=== PATIENT | male | born 1965 | race Caucasian/White ===

== ENCOUNTER 2018-08-04 05:44 | Day surgery (SDC) | payer OTHER ==
[~2018-08-04] VITALS: Ht 175.3 cm; Wt 63.1 kg
[~2018-08-04 05:44] MED LIST: ALEV220T26 PO; LISI10TA4 PO; MELA5TAB20 PO; OMEP40CA2 PO
[2018-08-04] MEDS ORDERED: dexameTHASONE 10 MG/1 ML VIAL PRES.FREE (J1100) ONE (05:45)
[2018-08-04] MEDS ORDERED: ROPIvacaine 0.5% 30 ML INJECTION (J2795 PER 1MG) ONE (05:45)
[2018-08-04] MEDS ORDERED: EPINEPHrine INJ 1 MG/ML 1ML AMP ONE (05:45)
[2018-08-04] MEDS ORDERED: fentaNYL 100 MCG/2 ML INJECTION (J3010) As Ordered ONE ×2 (06:47→07:12)
[2018-08-04] MEDS ORDERED: MIDAZOLAM INJ 2 MG/2 ML VIAL (J2250) As Ordered ONE ×2 (06:47→07:13)
[2018-08-04] MEDS ORDERED: LR 1,000 ML IV SCH ×3 (07:00→12:00)
[2018-08-04] MEDS ORDERED: EPINEPHrine INJ 1 MG/ML 1ML AMP As Ordered ONE (07:12)
[2018-08-04] MEDS ORDERED: LIDOCAINE 2% INJ 100 MG/5 ML SDV (FOR ANES.) As Ordered ONE (07:13)
[2018-08-04] MEDS ORDERED: dexameTHASONE 4 MG/ML 1ML VIAL (J1100) As Ordered ONE (07:13)
[2018-08-04] MEDS ORDERED: ONDANSETRON 4MG/2ML VIAL (J2405) As Ordered ONE (07:13)
[2018-08-04] MEDS ORDERED: PROPOFOL 200 MG/20 ML VIAL As Ordered ONE (07:13)
[2018-08-04] MEDS ORDERED: ROCURONIUM BROMIDE 50 MG/5 ML VIAL As Ordered ONE (07:13)
[2018-08-04] MEDS: fentaNYL 100 MCG/2 ML INJECTION (J3010) IV SCH ×2 (07:14→07:16)
[2018-08-04] MEDS ORDERED: MIDAZOLAM INJ 2 MG/2 ML VIAL (J2250) IV ONE (08:00)
[2018-08-04] MEDS ORDERED: SUGAMMADEX SODIUM 500 MG/5 ML VIAL (BRIDION) As Ordered ONE (08:30)
[2018-08-04] MEDS ORDERED: PERCOCET 5MG/325MG TAB PO PRN (11:30)
[2018-08-04] MEDS ORDERED: ONDANSETRON 4MG/2ML VIAL (J2405) IV PRN (11:30)
[2018-08-04] MEDS ORDERED: fentaNYL 100 MCG/2 ML INJECTION (J3010) IV PRN (11:30)
[2018-08-04 11:41] VITALS: BP 145/90
--- NOTE | 2018-08-04 14:16 | RO ---
DATE OF SURGERY: 08/04/2018 PREOPERATIVE DIAGNOSES: 1. Left shoulder full-thickness rotator cuff tear. 2. Left shoulder impingement. 3. Left shoulder labral tear with biceps tendon rupture. POSTOPERATIVE DIAGNOSES: 1. Left shoulder full-thickness rotator cuff tear. 2. Left shoulder labral tear. 3. Left shoulder arthritis. 4. Left shoulder impingement. PROCEDURE: 1. Left shoulder arthroscopic rotator cuff repair including subscapularis. 2. Left shoulder extensive debridement including chondroplasty, labral debridement, synovectomy and subacromial decompression. SURGEON: Dr. Levar Lynch EXERCISE SPECIALIST: SOHAIL Reid ANESTHESIA: Preoperative nerve block, plus general. INTRAVENOUS (IV) FLUIDS: Lactated Ringer's. ESTIMATED BLOOD LOSS: Less than 5 mL. IMPLANTS: Arthrex 4.75 mm SwiveLock anchor times four and Arthrex 5.5 mm SwiveLock anchor times one. CLOSURE: Nylon. PROCEDURE: Patient was identified in the preoperative holding area. The left shoulder was marked by myself. He had interscalene nerve block by anesthesia. He was brought to the operating room, placed supine on a well-padded operating room (OR) table with a beanbag. Generalized anesthesia was induced. He received appropriate IV antibiotics within 1 hour of incision. Exam under anesthesia revealed 180 degrees of forward flexion, 90 of external rotation with arm at his side and no increased anterior-posterior translation. He was then placed in the right side down lateral decubitus position with an axillary roll and all bony prominences well padded. He had bilateral Venodyne boots for deep venous thrombosis (DVT) prophylaxis. The left arm was placed into the Arthrex STaR sleeve lateral decubitus traction salazar with 10 pounds of traction. The left shoulder was then prepped and draped in a normal sterile fashion with Chloraprep. Prior to incision, a time-out performed per hospital protocol. SOHAIL Reid was present for the entire procedure and participated in all essential portions of the procedure. This included patient positioning and draping, holding the arthroscope, manipulating the arm, using the mallet and awl to assist with anchor placement, directly placing anchors, grasping suture and cutting suture and the wound closure. After a time-out, the left shoulder was insufflated with lactated Ringer's and a posterior viewing portal made with an #11 blade. A 30 degree arthroscope introduced into the joint atraumatically. Diagnostic arthroscopy was carried out revealing extensive synovitis in the rotator interval with some tearing of the upper border of the subscapularis. The long head of biceps tendon had previously torn and was not visualized within the joint. There is extensive degenerative labral tearing involving the anterior superior and posterior labrum. There were two areas of grade 2 chondromalacia in the glenoid. Grade 1 in the humeral head. The posterior rotator cuff was intact. However, there was high-grade partial articular tear of the infraspinatus with full thickness tearing of the entire supraspinatus extending into the infraspinatus. An anterior working portal was established through the rotator interval and a purple Arthrex cannula placed. I performed a synovectomy with the shaver and cautery in the rotator interval. After clearing out soft tissue around the subscapularis it was apparent that there was a tear of the upper one-third and there was a positive posterior lever push. I used the shaver to perform a debridement of the anterior superior and posterior labrum as well as to perform a chondroplasty of the glenoid. I also debrided some frayed rotator cuff tissue from the infraspinatus. I then proceeded with subscapularis repair. An accessory superolateral portal was created. A shaver was used to remove soft tissue from the lesser tuberosity. I removed 1-2 mm of articular cartilage to increase the footprint. Scorpion was used to pass FiberTape through the upper one-third of the subscapularis further medial through healthy tissue. Sutures were retrieved out the initial anterior portal loaded through a 4.75 mm biocomposite SwiveLock anchor. An awl was used to create a socket in lesser tuberosity. The anchor was docked and then malleted. After tensioning the sutures, the screw was inserted by hand with fantastic fixation. This nicely advanced the subscapularis. Sutures cut with a chicken cutter. The arthroscope was then placed in the subacromial space where there was moderate bursitis and I performed a bursectomy through a lateral portal with a shaver and cautery. The coracoacromial (CA) ligament was debrided. The ligament was only partially released to give adequate exposure of the far anterior portion and a formal acromioplasty was performed with the bur. There was a full-thickness crescent-shaped tear of the entire supraspinatus extending into the infraspinatus. A ring curette was used to remove all soft tissue off the exposed greater tuberosity. The meniscal punch was used to remove the leading edge to about 2 mm of tendon, which was poor quality. The undersurface of the tendon was gently debrided with the shaver off suction to remove devitalized tissue. The cuff grasper was then used to mobilize the tendon laterally, and despite this tear being a traumatic one from 5 months ago it actually had good excursion amendable to a double row repair. I then placed the first of two 4.75 mm Peak SwiveLock anchors preloaded with tape just off the articular surface, one anterior and one posterior. I passed the eyelet sutures of the anterior anchor through the far anterior portion of the supraspinatus and then tied knots arthroscopically with a knot pusher. TigerTapes were individually passed in a horizontal mattress fashion with the scorpion. The posterior anchor had TigerTape. Those sutures were passed also in a horizontal mattress fashion. The far posterior portion of the tear was going to have a dog ear, so I placed a separate FiberWire suture in a horizontal mattress fashion with the Scorpion. Sutures were then brought out to the lateral cannula to determine the appropriate place for anchors. There was a large cyst in the greater tuberosity on the MRI, so I elected to use a 5.5 mm anchor for the posterior lateral one. First, the anterior lateral anchor was placed. The anterior sutures were brought out through the cannula loaded through the SwiveLock anchor. An awl was used to create a socket. The anchor was docked, sutures tensioned per routine, anchor was malleted and then inserted by hand with good fixation. These steps were repeated with the posterior sutures at this time with a 5.5 mm SwiveLock anchor that had fantastic fixation. There were no dog ears. This created the box and X configuration. The shoulder was gently internally and externally rotated. The cuff moved nicely as a unit. There was no buckling. Shoulder was irrigated and drained. Portals closed with nylon suture. Bulky sterile dressing applied, and then he was placed into his ARC 2 sling, extubated and transferred to postanesthesia care unit (PACU) in stable condition.
== END 2018-08-04 12:13 | disposition home or self-care (01) ==
LOC: M SDC 05:44
PROVIDERS: ATTEND Orthopaedic Surgery
DX: M75.122 Complete rotator cuff tear or rupture of left shoulder, not specified as traumatic (principal); S43.492A Other sprain of left shoulder joint, initial encounter; M19.012 Primary osteoarthritis, left shoulder; M75.42 Impingement syndrome of left shoulder; I10 Essential (primary) hypertension; E03.9 Hypothyroidism, unspecified; R73.01 Impaired fasting glucose; R94.5 Abnormal results of liver function studies; R51 Headache; M54.5 Low back pain; K21.9 Gastro-esophageal reflux disease without esophagitis; M12.9 Arthropathy, unspecified; L30.9 Dermatitis, unspecified; F41.9 Anxiety disorder, unspecified; F32.9 Major depressive disorder, single episode, unspecified; F12.90 Cannabis use, unspecified, uncomplicated; Z88.8 Allergy status to other drugs, medicaments and biological substances; Z79.899 Other long term (current) drug therapy
CPT/HCPCS: 29826; 29827; C1713; J0690; J1100; J2250; J2405; J2795; J3010

== ENCOUNTER → 2019-05-12 | Outpatient (CLI) | payer OTHER ==
[~2019-05-12] MED LIST changes: -OMEP40CA2 PO; +OMEP40CA97 PO
--- NOTE | 2019-05-12 12:09 | REP ---
INDICATION: Degenerative disc disease. PROCEDURE: MRI of the lumbar spine. Axial T1, T2, sagittal T1, T2, and STIR images are obtained. COMPARISON STUDIES: none FINDINGS: There is degenerative disc disease most progressed at the L3-4 disc level with endplate changes. There is straightening of the lumbar spine and absence of normal lumbar lordosis. There is a left convex rotatory scoliosis. On the review of sagittal T2-weighted images, conus ends normally at L1 level. There is a canal stenosis at the L2-3 and L3-4 levels. At L1-2 global disc bulge with moderate canal stenosis and [id number] bilateral foraminal narrowing At L2-3 global disc bulge with hxzbnnjh-yr-okeqju canal stenosis and moderate right and mild left foraminal narrowing At L3-4 global disc bulge with severe canal stenosis and [id number]-[id number] right foraminal narrowing and [id number] left foraminal narrowing At L4-5 global disc bulge and small central disc herniation centered to the left with moderate canal stenosis and mild right and moderate left foraminal narrowing. At L5 S1 no significant canal stenosis or right foraminal narrowing, moderate left foraminal narrowing. IMPRESSION: 1. Kitbclva-eu-tmjbzp multilevel degenerative disc disease with canal stenosis L2-3 ([id number]) and L3-4 (severe) levels as described. 2. Foraminal narrowing is notable L2-3 and L3-4 on the right and L4-5 and L5 S1 on the left, also as described. Electronically Signed by Alex Larsen MD 05/12/2019 12:01 P
== END ==
LOC: M PLARAD 08:51
PROVIDERS: ATTEND Physician Assistant
DX: M51.36 Other intervertebral disc degeneration, lumbar region (principal); M51.26 Other intervertebral disc displacement, lumbar region; M48.061 Spinal stenosis, lumbar region without neurogenic claudication